=== PATIENT | female | born 1945 | race Caucasian/White ===

== ENCOUNTER 2016-11-29 11:01 | Emergency (ER) | payer MEDICARE ==
[~2016-11-29] VITALS: Ht 172.7 cm; Wt 111.0 kg
[~2016-11-29 11:01] MED LIST: HYDR200T3 PO; LEVO75TA3 PO; METO50TA PO; PROT40TA PO; TRAZ100 PO
[2016-11-29 11:45] VITALS: BP 137/72; PULSE 64; TEMP 98.2; O2SAT 96
[2016-11-29] MEDS ORDERED: PLAQ200T PO (12:04)
[2016-11-29] MEDS ORDERED: TRAZ100T4 PO (12:04)
[2016-11-29] MEDS ORDERED: GLIM2TAB PO (12:04)
[2016-11-29] MEDS ORDERED: METO-426 PO (12:04)
[2016-11-29] MEDS ORDERED: LOVA20TA PO (12:04)
[2016-11-29] MEDS ORDERED: LEVO50TA4 PO (12:04)
[2016-11-29] MEDS ORDERED: GABA600T PO (12:04)
--- NOTE | 2016-11-29 12:21 | PD ---
HPI Chief Complaint: Headache Time Seen by Provider: 11:59 Travel History International Travel<30 days: No Contact w/Intl Traveler<30days: No Traveled to known affect area: No History of Present Illness HPI This patient has a very atypical presentation. She gets brief sharp stabbing pains near the left ear that resolve in a couple seconds. No head injury or fever or neurologic deficit. Normal hearing. PFSH Past Medical History Arthritis: Yes Blood Disorders: No Cancer: Yes (HX OF L LUNG CANCER -- U L LOBE REMOVED) Cardiovascular Problems: No High Cholesterol: Yes Diabetes: No Endocrine: Yes Gastrointestinal Disorders: Yes (HX OF STOMACH ULCER, H-PYLORI -- TREATED CURRENTLY) Genitourinary: Yes Hepatitis: No Hiatal Hernia: No Hypertension: Yes Immune Disorder: Yes (LUPUS) Implanted Vascular Access Dvce: No Medical other: No Musculoskeletal: Yes (ARTHRITIS, BACK PROBLEMS) Neurologic: Yes (NEUROPATHY BILATERAL FEET) Psychiatric: No Reproductive: No Respiratory: Yes (HX OF L LUNG CANCER -- U L LOBE REMOVED, SLEEP APNEA,C-PAP, EARLY EMPHYSEMA) Sleep Apnea: Yes (PT NOT SURE) Thyroid Disease: Yes (HYPO THYROID) ?: Not Past Surgical History Eye Surgery: Yes (R EYE CATARACTS) Gynecologic Surgery: Yes (D&C; HYSTERECTOMY, GENITAL WARTS REMOVED) Oral Surgery: Yes (TONSILLECTOMY) Pacemaker: No Thoracic Surgery: Yes (NEEDLE BX; INSERTION CHEST TUBE, L UPPER LOBE LOBECTOMY D/T LUNG CA) Other Surgery: Yes Social History Alcohol Use: Yes (SELDOM) Tobacco Use: No Substance Use: No Allergies-Medications (Allergen,Severity, Reaction): Coded Allergies: Adhesives (Unverified Allergy, Severe, TAKES SKIN OFF, 04/20/13) PAPER TAPE [place] Sulfa (Unverified Allergy, Severe, RASH, 04/20/13) Penicillin (Verified Allergy, Intermediate, 04/20/13) Reported Meds & Prescriptions Reported Meds & Active Scripts Active Reported Levothyroxine (Levothyroxine Sodium) 50 Mcg Tab 50 Mcg PO DAILY Gabapentin 600 Mg Tab 600 Mg PO BID Glimepiride 2 Mg Tab 2 Mg PO BIDAC Lovastatin 20 Mg Tab 20 Mg PO DAILY Metoprolol Tartrate 75 Mg Tab 75 Mg PO BID Plaquenil (Hydroxychloroquine Sulfate) 200 Mg Tab 200 Mg PO BID Take with food Trazodone (Trazodone HCl) 100 Mg Tab 100 Mg PO HS Review of Systems General / Constitutional: No: Fever HENT: Positive: Headaches Cardiovascular: No: Chest Pain or Discomfort Physical Exam Narrative NEUROLOGICAL: Awake and alert. Pupils are equal round and reactive. Motor and sensory grossly within normal limits. Five out of 5 muscle strength in all muscle groups. Normal speech. SKIN: Inspection shows no rash or ulcers. Palpation shows no induration or nodules. NECK: Symmetrical appearance, midline trachea. No mass or crepitus. Thyroid without enlargement, tenderness, or mass. Throat and TMs and ear canals normal No scalp findings Data Data Last Documented VS Vital Signs Date Time Temp Pulse Resp B/P Pulse Ox O2 Delivery O2 Flow Rate FiO2 11/29/16 11:45 98.2 64 137/72 96 MDM Medical Decision Making Medical Screen Exam Complete: Yes Emergency Medical Condition: Yes Medical Record Reviewed: Yes Differential Diagnosis Migraine, otitis, nerve pain Narrative Course I have reviewed the patient's electronic medical record. Etiology of her atypical presentation is unclear. There is no objective findings. She is neurologically intact. No red flags to suggest emergent imaging is indicated. I don't think this represents recurrence of her lung cancer with brain metastases. She has tramadol at home that she is going to try but has not yet. He will be difficult to shaunna this 2 second long pain with pills as it resolves readily. Recommend primary care follow-up. Diagnosis Primary Impression: Cephalgia Qualified Code: R51 - Acute nonintractable headache, unspecified headache type Additional Instructions: The patient was advised to follow up with their physician and return if they worsen. Med/Other Pt SpecificInfo: Other Disposition: 01 DISCHARGE HOME Condition: Stable Gene Cobian MD Nov 29, 2016 12:21
== END 2016-11-29 12:47 | disposition home or self-care (01) ==
LOC: PHED 11:01
DX: R51 Headache (principal); H92.02 Otalgia, left ear
CPT/HCPCS: 99283